=== PATIENT | female | born 2000 | race Caucasian/White ===

== ENCOUNTER 2023-04-02 19:10 | Emergency (ER) | payer MEDICAID ==
[2023-04-02] MEDS: Ondansetron 4 MG Tab.DIS PO ONE (19:55)
[2023-04-02] MEDS: Take Home: Ondansetron 4 MG Tab.DIS, 5 Tab Pack PO ONE (20:07)
== END 2023-04-02 20:14 | disposition home or self-care (01) ==
LOC: VM.ED 19:10
DX: R11.10 Vomiting, unspecified (principal); R19.7 Diarrhea, unspecified
CPT/HCPCS: 99283; A9270-GY; Q0162